=== PATIENT | female | born 1980 | race Two or more races ===

== ENCOUNTER 2023-04-04 13:39 | Outpatient (CLI) | payer OTHER ==
[~2023-04-04 13:39] MED LIST: GADOBUTROL 7.5 MMOL/7.5 ML VIAL ONE
[2023-04-04] MEDS ORDERED: GADOBUTROL 7.5 MMOL/7.5 ML VIAL IVP ONE (14:42)
--- NOTE | 2023-04-05 01:14 | MRI Report ---
PROCEDURE: BRAIN W/WO INDICATIONS: MIGRAINE CONTRAST: GADAVIST 6.8 ML TECHNIQUE: Noncontrast axial T1 spin echo, axial T2 fast spin echo, sagittal and axial FLAIR, coronal T2 fast sp in echo, axial gradient echo, axial diffusion and ADC through the brain. After the administration of contrast, axial and coronal T1 spin echo with fat saturation through the brain. COMPARISON: None. FINDINGS: Image quality: Excellent. CSF spaces: Basal cisterns are patent. No extra-axial fluid collections. Ventricles are normal in size and shape. Brain: Scattered foci of T2-weighted hyperintensity can be seen within the periventricular and deep w evie matter. Several peripheral lesions can also be seen. No melissa involvement of the corpus callosum can be seen. These foci do not enhance. No midline shift. No intracranial bleeds or masses. No abnormal intracranial enhancement. The brai nstem appears normal. Diffusion-weighted images demonstrate no acute ischemic insults. No chronic i schemic insults. Normal intravascular flow voids are present. Skull and face: Calvarial marrow is normal in signal. Orbits appear normal. Sinuses: Mild irregularity can be seen involving the inferior left maxillary sinus. Sinuses and mast oids otherwise appear clear. IMPRESSION: Nonspecific T2 hyperintense white matter lesions are seen. In this patient with a history of migraine headaches, sequelae of migraine headaches is suspected. However, please consider multiple sclerosis and vasculitis. Premature chronic small vessel ischemic change is also possible, yet considered to be less likely. No masses or abnormal enhancement can be seen. Reviewed by: Eduin Saab MD on 04/05/2023 12:13 AM ALEKSANDER Approved by: Eduin Saab MD on 04/05/2023 12:13 AM ALEKSANDER Station ID: [id number]
== END 2023-04-04 13:40 | disposition home or self-care (01) ==
LOC: DI 13:39
PROVIDERS: ATTEND Nurse Practitioner Family
DX: G43.009 Migraine without aura, not intractable, without status migrainosus (principal)
CPT/HCPCS: 70553; A9585

== ENCOUNTER 2024-07-19 12:37 | Outpatient (CLI) | payer OTHER ==
--- NOTE | 2024-07-20 09:06 | Mammography Report ---
BILATERAL DIGITAL SCREENING MAMMOGRAM 3D/2D: 07/19/2024 CLINICAL: Baseline exam. Routine screening. No prior exams were available for comparison. Both breasts are heterogeneously dense, which may obscure small masses (category c / 51-75% glandular tissue). No significant masses, calcifications, or other findings are seen in either breast. IMPRESSION: NEGATIVE There is no mammographic evidence of malignancy. A 1 year screening mammogram is recommended. Based on the Tyrer Cuzick model (a risk assessment model) the patient's lifetime risk is 19.8% and he r 10 year risk is 2.8%. According to the ACR, ACS, and NCCN guidelines, an annual breast MRI exam andrew ng with mammogram is recommended if the patient's lifetime risk is 20% or greater. This exam was interpreted at Station ID: [id number]. NOTE: For mammograms, a report in lay terms will be sent to the patient. Approximately 15% of breast malignancies will not be visualized mammographically. In the management of a palpable breast mass, a negative mammogram must not discourage biopsy of a clinically suspicious lesion. Electronically Signed By: Humberto rose/diaz:07/19/2024 18:51:29 letter sent: No_Letter ACR BI-RADS Category 1: Negative 3341F PARENCHYMAL PATTERN: (D) - The breast(s) demonstrate(s) heterogeneously dense fibroglandular parenchy ma. BI-RADS CATEGORY: (1) - 1 RECOMMENDATION: (ANNUAL) - Recommend routine annual screening mammography. [id number] 1 year screening LATERALITY: (B)
== END 2024-07-19 12:38 | disposition home or self-care (01) ==
LOC: DI.N 12:37
PROVIDERS: ATTEND Registered Nurse
DX: Z12.31 Encounter for screening mammogram for malignant neoplasm of breast (principal); R92.333 Mammographic heterogeneous density, bilateral breasts